=== PATIENT | female | born 1970 | race Two or more races ===

== ENCOUNTER 2016-05-21 20:02 | Emergency (ER) | payer MEDICAID ==
[~2016-05-21] VITALS: Ht 167.6 cm; Wt 94.5 kg
[~2016-05-21 20:02] MED LIST: ACET500T98 PO; AMO500 PO; AZIT250T94 PO; IBUP200C PO; OSLT75C PO; PROM6.25 PO; TYL500 PO
[2016-05-21 20:07] VITALS: Ht 167.6 cm; Wt 94.5 kg
[2016-05-22 00:22] LABS: URINE BLOOD (Dip) POC 1+ (NEGATIVE)
[2016-05-22 01:42] LABS: ADD UMIC YES; URINE BILIRUBIN (Dip) NEGATIVE (NEGATIVE); URINE BLOOD (Dip) 1+ (NEGATIVE); URINE COLOR LT. YELLOW (YELLOW); URINE GLUCOSE (Dip) NEGATIVE (NEGATIVE); URINE KETONES (Dip) NEGATIVE (NEGATIVE); URINE LEUKOCYTE ESTERASE (Dip) NEGATIVE (NEGATIVE); URINE NITRITE (Dip) NEGATIVE (NEGATIVE); URINE TOTAL PROTEIN (Dip) NEGATIVE (NEGATIVE); URINE UROBILINOGEN (Dip) 0.2 E.U./dL (0.1-1.0)
[2016-05-22 01:54] LABS: BACTERIA,URINE RARE; SQUAMOUS EPITHELIAL CELL,UR FEW
--- NOTE | 2016-05-22 02:34 | RADRPT ---
PROCEDURE: US pelvis limited CLINICAL INDICATION: Sensation of retained tampon TECHNIQUE: Transabdominal scanning of the area of the vagina was performed. The images were revie wed on a PACS workstation. COMPARISON: None. FINDINGS: A total 4 images are submitted for interpretation. No gross echogenic or hypoechoic foreign body is seen. IMPRESSION: No visualized foreign body. Direct inspection by pelvic exam be suggested, however. RPTAT: HLBE Misty Mcbride Physician Date Time Electronically viewed and signed by Misty Mcbride Physician on 05/22/2016 02:33 LE/
[2016-05-22 02:46] VITALS: BP 171/97; PULSE 75; RESP 18; TEMP 97.9
--- NOTE | 2016-05-22 02:48 | ERD ---
ER Documentation Chief Complaint Date/Time DATE: 05/22/16 TIME: 02:38 Chief Complaint foreign body "tampon" in vagina HPI 36-year-old female who is a presents the ED complaining of feeling like she retained a tampon in her vaginal canal. States that she placed a tampon around 630 yesterday p.m. Denies any dysuria, urgency, frequency, hematuria. Denies any abdominal pain, nausea, vomiting, flank pain, fever, chills. States that her last menses started 4 days ago and currently is not experiencing as much vaginal bleeding. Denies any vaginal discharge. States that she is sexually active with one partner. ROS All systems reviewed and are negative except as per history of present illness. Medications Home Meds Active Scripts Ibuprofen* (Ibuprofen*) 200 Mg Capsule, 200 MG PO Q6, #30 CAP 0 Refills Prov:GIULIANA ADAMS PA-C 06/28/15 Acetaminophen (Tylenol) 500 Mg Tab, 500 MG PO Q6, #30 TAB 0 Refills Prov:GIULIANA ADAMS PA-C 06/28/15 Amoxicillin* (Amoxicillin*) 500 Mg Cap, 500 MG PO TID, #21 CAP 0 Refills Prov:GIULIANA ADAMS PA-C 06/28/15 Oseltamivir Phosphate* (Tamiflu*) 75 Mg Capsule, 75 MG PO BID, #10 CAP 0 Refills Prov:GIULIANA ADAMS PA-C 06/28/15 Acetaminophen* (Tylenol*) 500 Mg Tab, 500 MG PO Q4H Y for MILD PAIN LEVEL 1-3, # 14 TAB Prov:AUSTYN LOPEZ MD 05/28/15 Promethazine w/Codeine* (Phenergan w/Codeine* Syrup) 5 Ml Syrup, 5 ML PO Q4H Y for COUGH, #5 ML 6 OZ Prov:AUSTYN LOPEZ MD 05/28/15 Azithromycin* (Zithromax*) 250 Mg Tablet, 250 MG PO .ZPACK DIRECTED, #6 TAB TAKE 500 MG (2 TABS) THE FIRST DAY THEN 250 MG (1 TAB) DAYS 2-5 Prov:AUSTYN LOPEZ MD 05/28/15 Allergies Allergies: Coded Allergies: No Known Allergy (Unverified , 06/28/15) PMhx/Soc History of Surgery: No Anesthesia Reaction: No Hx Neurological Disorder: No Hx Respiratory Disorders: No Hx Cardiac Disorders: No Hx Psychiatric Problems: No Hx Miscellaneous Medical Probl: No Hx Alcohol Use: No Hx Substance Use: No Hx Tobacco Use: No Physical Exam Vitals Temp 97.8 Pulse 91 Resp 20 SBP 157 DBP 83 O2 Sat 99 Physical Exam Const: Gob-hya-vneedused, well-nourished. In no acute distress. Head: Atraumatic, normocephalic Eyes: Normal Conjunctiva without injection. No purulent discharge. ENT: Normal external ear, nose. Moist oropharynx without tonsillar exudates. Non -erythematous pharynx. Uvula midline. No drooling. No trismus. Neck: No cervical midline tenderness. Full range of motion. No meningismus. No cervical lymphadenopathy. No JVD. Resp: Clear to auscultation bilaterally. No wheezing, rhonchi, rales, or crackles. No accessory muscle use. No retractions. Cardio: Regular rate and rhythm. No murmurs, rubs or gallops. Abd: Soft, nontender, non distended. Normal bowel sounds. No palpable masses. No rebound tenderness. No guarding. Negative McBurney's point. Negative psoas sign. Negative obturator sign. : See exam in MDM. Skin: No petechiae or rashes Back: No midline tenderness. No CVA tenderness. Ext: No cyanosis, or edema. Neur: Awake and alert. Normal gait. Normal coordination. Psych: Normal Mood and Affect Results 24 hrs Laboratory Tests Test 05/22/16 00:23 05/22/16 01:30 Bedside Urine Blood 1+ Bedside Urine Glucose (UA) Negative Bedside Urine Ketones (LAB) Negative Bedside Urine Leukocyte Esterase (L Negative Bedside Urine Nitrite (LAB) Negative Bedside Urine Protein (LAB) Negative Bedside Urine pH (LAB) 6.0 Urine Bacteria RARE Urine Bilirubin NEGATIVE Urine Clarity CLEAR Urine Color LT. YELLOW Urine Glucose NEGATIVE% Urine Hemoglobin 1+ Urine Ketones NEGATIVE Urine Leukocyte Esterase NEGATIVE Urine Microscopic RBC 2-5/HPF Urine Microscopic WBC 0-2/HPF Urine Nitrite NEGATIVE Urine Specific Loa 1.020 Urine Squamous Epithelial Cells FEW Urine Total Protein NEGATIVE Urine Urobilinogen 0.2 E.U./dL Urine pH 6.0 Procedures/[facility] 46-year-old female who is a with no past medical history presents the ED complaining of a retained tampon in her vagina. Patient is afebrile and nontoxic-appearing. Patient has normal vital signs. Patient gave consent to do a pelvic exam at this time. Pelvic Exam: Heddler present Abdomen: [Nontender] External Genitalia: [Normal Skin] Speculum: [Normal vaginal mucosa, normal cervical discharge, no tampon noted] Bimanual: [No adnexal masses or tenderness, No CMT] Patient was further worked up with UA, urine and pelvic ultrasound. Urine: No leukocyte esterase, no nitrites, no hematuria. Urine : negative PROCEDURE: US pelvis limited CLINICAL INDICATION: Sensation of retained tampon TECHNIQUE: Transabdominal scanning of the area of the vagina was performed. The images were reviewed on a PACS workstation. COMPARISON: None. FINDINGS: A total 4 images are submitted for interpretation. No gross echogenic or hypoechoic foreign body is seen. IMPRESSION: No visualized foreign body. Direct inspection by pelvic exam be suggested, however. RPTAT: HLBE Physician Alexandru Date Time Electronically viewed and signed by Physician Alexandru on 05/22/2016 02 :33 Patient is afebrile. No rash. No tampon noted on ultrasound. Low suspicion for toxic shock syndrome, gastritis, GERD, peptic ulcer disease, cholecystitis, choledocholithiasis, cholangitis, pancreatitis, appendicitis, bowel obstruction , ileus, volvulus, nephrolithiasis, pyelonephritis, hepatitis, perforated viscus , diverticulitis, abdominal hernia, acute abdomen, mesenteric ischemia or other emergent conditions. This case was discussed with my supervising physician Dr. Bhatt who agreed with the management and discharge plan. Follow up with primary care physician in 1-2 days for referral to [facility]ERK. Instructed patient to return to the ED sooner for any worsening symptoms. Patient's questions were answered. Patient understood and agreed with discharge plan. Patient discharged stable. Departure Diagnosis: Primary Impression: Sensation of foreign body Condition: Stable Patient Instructions: Vaginal Foreign Body, Removed (Adult) Referrals: COMMUNITY CLINICS YOU HAVE RECEIVED A MEDICAL SCREENING EXAM AND THE RESULTS INDICATE THAT YOU DO NOT HAVE A CONDITION THAT REQUIRES URGENT TREATMENT IN THE EMERGENCY DEPARTMENT. FURTHER EVALUATION AND TREATMENT OF YOUR CONDITION CAN WAIT UNTIL YOU ARE SEEN IN YOUR DOCTORS OFFICE WITHIN THE NEXT 1-2 DAYS. IT IS YOUR RESPONSIBILITY TO MAKE AN APPOINTMENT FOR FOLOW-UP CARE. IF YOU HAVE A PRIMARY DOCTOR --you should call your primary doctor and schedule an appointment IF YOU DO NOT HAVE A PRIMARY DOCTOR YOU CAN CALL OUR PHYSICIAN REFERRAL HOTLINE AT IF YOU CAN NOT AFFORD TO SEE A PHYSICIAN YOU CAN CHOSE FROM THE FOLLOWING [facility] [address]. [facility] [address] [facility]. [facility] [address] [facility] [address] [facility]. [facility] [address] [facility]. [facility] [address] [facility]. [facility] YOU HAVE RECEIVED A MEDICAL SCREENING EXAM AND THE RESULTS INDICATE THAT YOU DO NOT HAVE A CONDITION THAT REQUIRES URGENT TREATMENT IN THE EMERGENCY DEPARTMENT. FURTHER EVALUATION AND TREATMENT OF YOUR CONDITION CAN WAIT UNTIL YOU ARE SEEN IN YOUR DOCTORS OFFICE WITHIN THE NEXT 1-2 DAYS. IT IS YOUR RESPONSIBILITY TO MAKE AN APPOINTMENT FOR FOLOW-UP CARE. IF YOU HAVE A PRIMARY DOCTOR --you should call your primary doctor and schedule and appointment IF YOU DO NOT HAVE A PRIMARY DOCTOR YOU CAN CALL OUR PHYSICIAN REFERRAL HOTLINE AT . IF YOU CAN NOT AFFORD TO SEE A PHYSICIAN YOU CAN CHOSE FROM THE FOLLOWING [facility]: [facility] [address] [place] [address] [facility] [address] [place] [address] [facility] [address] [place] [address] [facility] [place] [address] [facility] [address] [place] [address]ABUSLEME CASSANDRA [address] [place] [address] DR. DODGE, ANSONIA [address] [place] [address] DR EDWARDS, [facility] [address] [facility], [address], [place] [address] DR GUALLPA, [facility] [address] [place] [address] [facility] [address] [place] [address] [address] [facility] [address] [address] HARDIN, PATRICK [address] [place] [address] DR GILL, [place]LA [address] [facility]. [address], [place] [address] DR BRUNNER, [facility] [address] [place] [address] [facility] Hours: 8:00 am - 5:00 pm Additional Instructions: Visite a jayashree conner para un EXAMEN.Regrese a estas instalaciones si no se mejora joselin esperbamos o joselin le dionis. MORENITA HOLGUIN PA-C May 22, 2016 02:47
== END 2016-05-22 02:59 | disposition home or self-care (01) ==
LOC: FTE 20:02
DX: N89.8 Other specified noninflammatory disorders of vagina (principal)
CPT/HCPCS: 76856; 81001; Z7502; 81003